=== PATIENT | male | born 1995 | race Caucasian/White ===

== ENCOUNTER 2019-03-14 08:59 | Emergency (ER) | payer BC ==
[~2019-03-14] VITALS: Ht 182.9 cm; Wt 74.8 kg
[2019-03-14] MEDS ORDERED: BENADRYL25 MG PO (09:27)
[2019-03-14] MEDS ORDERED: CALAMINE TOP (09:27)
[2019-03-14] MEDS ORDERED: METPRE4DP PO (09:27)
== END 2019-03-14 10:18 | disposition home or self-care (01) ==
LOC: ER 08:59
DX: L23.7 Allergic contact dermatitis due to plants, except food (principal)
CPT/HCPCS: 96372; 99282-25; J1200; J3301